=== PATIENT | male | born 1980 | race Caucasian/White ===

== ENCOUNTER 2020-09-09 21:43 | Emergency (ER) | payer BC, SELFPAY ==
[2020-09-09 21:50] VITALS: BP 147/78; PULSE 66; O2SAT 96
[2020-09-09 21:55] VITALS: BP 147/78; PULSE 87; RESP 17; TEMP 36.7; O2SAT 100; BMI 25.4
[2020-09-09 22:00] VITALS: PULSE 79; RESP 21; O2SAT 100
--- NOTE | 2020-09-09 22:01 | ED.GENADULT ---
HPI - General Adult General Chief complaint: Chest Pain Stated complaint: CHEST TIGHTNESS HEART RATE IS FAST LITTLE SOB Time Seen by Provider: 09/09/20 21:44 Source: patient Mode of arrival: Ambulatory Limitations: no limitations History of Present Illness HPI narrative: 40-year-old male who is here for evaluation of 3 days of intermittent palpitations, fast heart rate, shortness of breath associated with it and chest discomfort. He states that he used his Apple watch at home and stated that his heart rate was in the 160s. He was having symptoms at the time of his EKG and arrival here to the ER. Prior to 3 days ago denies any prior history of similar symptoms. Has not tried anything for symptoms prior to arrival Related Data Allergies Allergy/AdvReac Type Severity Reaction Status Date / Time No Known Drug Allergies Allergy Verified 09/09/20 22:10 Review of Systems Constitutional Constitutional: Denies fever(s) and Denies headache(s) ENT Ears, Nose, Mouth, and Throat: Denies headache(s) Cardiovascular Cardiovascular: Reports chest pain, Reports rapid heart rate, Reports irregular heart rhythm and Reports lightheadedness Respiratory Respiratory: Denies cough Gastrointestinal Gastrointestinal: Denies nausea and Denies vomiting Musculoskeletal Musculoskeletal: Denies arthralgias and Denies myalgias Integumentary/Breasts Skin/Breast: Denies lesions and Denies rash Neurologic Neurologic: Denies behavioral changes and Denies headache(s) Psychiatric Psychiatric: Denies behavioral changes Hematologic/Lymphatic Hematologic/Lymphatic: Denies easy bleeding and Denies easy bruising Allergic/Immunologic Allergic/Immunologic: Denies urticaria Patient History Medical History Anxiety Social History Smoking Status: Never smoker Exam Initial Vital Signs Initial Vital Signs: Vital Signs Pulse Rate 66 09/09/20 21:50 Blood Pressure 147/78 H 09/09/20 21:50 Pulse Oximetry 96 09/09/20 21:50 Const General: cooperative and comfortable Limitations: mental status not altered HENNH Head: normal to inspection and normocephalic Resp Effort & Inspection: normal respiratory effort Auscultation: clear to auscultation bilaterally Cardio Rate: regular rate Rhythm: regular rhythm GI Inspection: non-distended Palpation: soft Skin Lesions: no lesions Rashes: no rashes Neuro General: patient alert, patient awake and patient oriented x3 Cognition: normal cognition Speech: speech normal Extrem General: normal to inspection and capillary refill normal Psych Appearance: grossly normal and well kempt Scores PERC Score Age greater than or equal to 50 years: No Heart rate greater than or equal to 100 bpm: No Room Air O2 Sat less than 95%: No Unilateral leg swelling: No Recent trauma or surgery: No Hemoptysis: No Prior PE or DVT: No Hormone Use: No Total PERC Score: 0 Course Orders Ordered: ED Orders 09/09/20 21:48 EKG-12 Lead Stat 09/09/20 22:02 XR chest 1V Stat 09/09/20 22:05 Complete Blood Count AUTO DIFF Stat Comprehensive Metabolic Panel Stat Lipase Stat Troponin & CK Cardiac Panel Stat Vital Signs Vital signs: Vital Signs - 8 hr 09/09/20 21:50 09/09/20 21:55 09/09/20 22:00 Temperature 98.1 F Pulse Rate 66 87 79 Respiratory Rate 17 21 Blood Pressure 147/78 H 147/78 H Pulse Oximetry 96 100 100 09/09/20 22:30 09/09/20 22:44 Temperature Pulse Rate 74 63 Respiratory Rate 20 Blood Pressure 114/62 Pulse Oximetry 98 97 Medical Decision Making Lab Data Lab results reviewed: Yes I reviewed the patient's lab results. Result diagrams: 09/09/20 22:05 09/09/20 22:05 Labs: Lab Results 09/09/20 09/09/20 Range/Units 22:05 22:05 WBC 6.4 (4.5-11.0) X10^3/uL RBC 4.32 L (4.5-5.9) X10^6/uL Hgb 13.8 (13.5-17.5) g/dL Hct 40.3 L (41-53) % MCV 93.3 (80-100) fL MCH 32.0 (26-34) PG MCHC 34.3 (30-36) % RDW 12.8 (11.6-14.8) % Plt Count 197 (150-400) X10^3/uL Neut % (Auto) 39.3 L (50-75) % Lymph % (Auto) 47.6 H (25-40) % [place] % (Auto) 10.2 (3-14) % Eos % (Auto) 2.5 (2-4) % Baso % (Auto) 0.4 (0-2) % Neut # (Auto) 2500 (0060-5017) /uL Lymph # (Auto) 3000 (2601-5620) /uL [place] # (Auto) 600 (0-900) /uL Eos # (Auto) 200 (0-450) /uL Baso # (Auto) 0 (0-100) /uL Sodium 138 (137-145) mmol/L Potassium 3.5 (3.4-5.1) mmol/L Chloride 103 (98-107) mmol/L Carbon Dioxide 27 (22-32) mmol/L BUN 14 (9-20) mg/dL Creatinine 0.90 (0.66-1.25) mg/dL Estimated GFR > 60.0 (>60) mL/min BUN/Creatinine Ratio 15.6 (6-22) Glucose 113 H (70-100) mg/dL Calcium 10.0 (8.4-10.2) mg/dL Total Bilirubin 0.7 (0.2-1.3) mg/dL AST 34 (17-59) IU/L ALT 23 (<50) IU/L Alkaline Phosphatase 62 (38-126) U/L Total Creatine Kinase 188 H (55-170) U/L CK-MB (CK-2) 1.10 (<2.37) ng/mL CK-MB (CK-2) Rel Index 0.6 L (1.5-5.0) % Troponin I < 0.012 (0.01-0.034) ng/mL Total Protein 8.2 (6.3-8.2) g/dL Albumin 4.9 (3.5-5.0) g/dL Globulin 3.3 (1.7-4.1) g/dL Albumin/Globulin Ratio 1.5 (1.0-2.8) Lipase 25 (23-300) U/L Imaging Data Chest x-ray: Radiologist's Impression: No acute disease ECG Data Attestation: I personally reviewed and interpreted this ECG as follows: Prior ECG tracings: not available for review Interpretation: Sinus rhythm Ventricular rate 90 Normal QRS QTC 4 for [address] T wave changes MDM Narrative Medical decision making narrative: Patient states that he was having symptoms at the time of his arrival here to the ER. He was in sinus rhythm and a normal rate both on his EKG and on the monitor while he was here. His labs unremarkable. Chest x-ray is unremarkable. Low suspicion for pulmonary embolism. Informed the patient he needed to talk with his primary doctor about the indications for Holter monitoring given his presentation. He will patient be discharged home with follow-up. He was given return precautions. He expressed understanding and agreement. Discharge Plan Departure Patient Disposition: Home Clinical Impression: Palpitations Instructions: DI for Palpitations Activity Restrictions/Additional Instructions: I do recommend that you contact your primary provider to discuss the indications for a Holter monitor. Return to the emergency department for any new or worsening symptoms like we discussed.
--- NOTE | 2020-09-09 22:02 | DI.RAD.S_ITS ---
PROCEDURE: XR CHEST 1V INDICATIONS: SOB TECHNIQUE: One view of the chest was acquired. COMPARISON: None. FINDINGS: Surgical changes and devices: None. Lungs and pleura: Lungs are mildly abnormal with increased radiodensity over the right hemithorax when compared to that on the left. It is unclear whether this represents an artifact of technique, or a true asymmetric lung parenchymal finding.. No pleural effusions or pneumothorax. Mediastinum: Mediastinal contours appear normal. Heart size is normal. Bones and chest wall: No suspicious bony lesions. Overlying soft tissues appear unremarkable. IMPRESSION: No definite acute disease. Possible artifact of technique resulting in asymmetric increased radiodensity over the right lung when compared to normal appearance on the left. Follow-up repeat chest plain film in the radiology department would be helpful in accurately assessing cause of this asymmetry. Clinically, however, such follow-up may not be warranted. Dictated by: Obed Huertas M.D. on 09/10/2020 at 9:00 Approved by: Obed Huertas M.D. on 09/10/2020 at 9:02
[2020-09-09 22:10] LABS: Add Manual Diff / Slide Review NO; Basophils Absolute Auto 0 /uL (0-100); Basophils Percent Auto 0.4 % (0-2); Eosinophils Absolute Auto 200 /uL (0-450); Eosinophils Percent Auto 2.5 % (2-4); Hematocrit 40.3 % (41-53); Hemoglobin 13.8 g/dL (13.5-17.5); Lymphocytes Absolute Auto 3000 /uL (1100-4500); Lymphocytes Percent Auto 47.6 % (25-40); Mean Corpuscular HGB Conc 34.3 % (30-36); Mean Corpuscular Volume 93.3 fL (80-100); Monocytes Absolute Auto 600 /uL (0-900); Monocytes Percent Auto 10.2 % (3-14); Neutrophils Absolute Auto 2500 /uL (1500-7000); Neutrophils Percent Auto 39.3 % (50-75); Platelet Count 197 X10^3/uL (150-400); Red Blood Cell Count 4.32 X10^6/uL (4.5-5.9); Red Cell Distribution Width 12.8 % (11.6-14.8); White Blood Cell Count 6.4 X10^3/uL (4.5-11.0)
[2020-09-09 22:21] LABS: Alanine Aminotransferase 23 IU/L (<50); Albumin 4.9 g/dL (3.5-5.0); Albumin Globulin Ratio 1.5 (1.0-2.8); Alkaline Phosphatase 62 U/L (38-126); Aspartate Aminotransferase 34 IU/L (17-59); BUN Creatinine Ratio 15.6 (6-22); Bilirubin Total 0.7 mg/dL (0.2-1.3); Blood Urea Nitrogen 14 mg/dL (9-20); Carbon Dioxide 27 mmol/L (22-32); Chloride 103 mmol/L (98-107); Creatine Kinase 188 U/L (55-170); Estimated Glomerular Filt Rate > 60.0 mL/min (>60); Globulin 3.3 g/dL (1.7-4.1); Glucose 113 mg/dL (70-100); HEMOLYSIS < 15 (0-50); Lipase 25 U/L (23-300); Potassium 3.5 mmol/L (3.4-5.1); Sodium 138 mmol/L (137-145); Total Protein 8.2 g/dL (6.3-8.2)
[2020-09-09 22:30] VITALS: PULSE 74; O2SAT 98
[2020-09-09 22:33] LABS: Troponin I < 0.012 ng/mL (0.01-0.034)
[2020-09-09 22:37] LABS: CKMB % Relative Index 0.6 % (1.5-5.0)
[2020-09-09 22:44] VITALS: BP 114/62; PULSE 63; RESP 20; O2SAT 97
== END 2020-09-09 23:03 | disposition home or self-care (01) ==
PROVIDERS: Emergency Provider Emergency Medicine
DX: R00.2 Palpitations (principal); R06.02 Shortness of breath; R07.9 Chest pain, unspecified
CPT/HCPCS: 71045; 80053; 82550; 82553; 83690; 84484; 85025; 93005; 99281; 99284

== ENCOUNTER 2020-09-18 23:45 | Observation (INO) | payer BC, SELFPAY ==
--- NOTE | 2020-09-18 23:54 | DI.RAD.S_ITS ---
PROCEDURE: XR CHEST 1V INDICATIONS: chest pain TECHNIQUE: One view of the chest was acquired. COMPARISON: [facility], CR, XR CHEST 1V, 09/09/2020, 22:04. FINDINGS: Surgical changes and devices: None. Lungs and pleura: Lungs are clear. No pleural effusions or pneumothorax. Mediastinum: Mediastinal contours appear normal. Heart size is normal. Bones and chest wall: No suspicious bony lesions. Overlying soft tissues appear unremarkable. IMPRESSION: No acute cardiopulmonary disease process. Dictated by: Yady Rojas MD, PhD on 09/19/2020 at 9:01 Approved by: Yady Rojas MD, PhD on 09/19/2020 at 9:02
[2020-09-18 23:55] VITALS: BP 137/63; PULSE 52; PULSE 58; RESP 14; RESP 17; TEMP 36.9; O2SAT 100; O2SAT 99; BMI 24.3
[2020-09-19] VITALS (24 sets, daily range): BP systolic 97–140; BP diastolic 53–77; PULSE 47–96; RESP 12–32; TEMP 36.1–37.1; O2SAT 95–100; BMI 24.7
--- NOTE | 2020-09-19 | DI.ECHO.S_ITS ---
[facility] +---------+ : : [address] : [place] : : : : [id number] : : : : Phone: [phone] Echocardiogram Report + + :Name: JAMES FIELD Study Date: 09/19/2020 Height: 65 in : :[facility] Weight: 195 lb : : Gender: Male BSA: 2.0 m2 : :: 1980 Age: 40 yrs BP: 137/63 mmHg: :Reason For Study: Chest Pain : : Performed By: Lorri Jones : :Referring: KAREN LOZADA : + + Interpretation Summary 1) Normal left ventricular size, thickness, wall motion, and systolic function (EF 55-60%). 2) Normal right ventricular size and function. 3) No significant valvular abnormalities. 4) No prior Echo available for comparison. Procedure: A two-dimensional transthoracic echocardiogram with color flow and Doppler was performed. The study quality was technically adequate. There is no prior echocardiogram noted for this patient. The patient was in normal sinus rhythm during the exam. Left Ventricle: The left ventricle is normal in size and wall thickness. The ejection fraction is estimated to be 55-60%. Left ventricular systolic function appears normal without focal wall motion abnormalities. Right Ventricle: The right ventricle is normal in size and function. Atria: The left atrial size is normal. Right atrial size is normal. There is no Doppler evidence for an interatrial shunt. Mitral Valve: The mitral valve leaflets appear mildly thickened, but open well. There is trace mitral regurgitation. Aortic Valve: The aortic valve is trileaflet. The aortic valve opens well. There is no aortic valve stenosis. No aortic regurgitation is present. Tricuspid Valve: The tricuspid valve is normal in structure and function. There is a trace or physiologic amount of tricuspid regurgitation. Pulmonary artery pressures cannot be estimated because of the lack of a measurable TR jet velocity. Pulmonic Valve: The pulmonic valve leaflets are thin and pliable; valve motion is normal. There is a trace or physiologic amount of pulmonic regurgitation. Great Vessels: The aortic root is normal size. The ascending aorta is normal in size. The pulmonary artery is normal size. The IVC is of normal diameter and collapses greater than 50% with a sniff. This suggests a low right atrial pressure of 3 mm Hg. Pericardium/ Pleura There is no pericardial effusion. MMode/2D Measurements & Calculations LVIDd: 5.2 cm LVOT diam: 2.5 cm LVIDs: 3.4 cm Ao root diam: 3.2 cm FS: 34.8 % asc Aorta Diam: 2.6 cm IVSd: 0.82 cm LVPWd: 0.91 cm LV guerin. diameter/BSA (cm/m^2): 2.7 LV sys. diameter/BSA (cm/m^2): 1.7 LA A2 area: 22.4 cm2 RA long axis: 4.7 cm LA A4 area: 16.1 cm2 RA area: 17.5 cm2 LA length (vol): 5.3 cm RA vol: 54.9 ml LA vol: 57.1 ml RA : 28.1 ml/m2 LA vol index: 29.2 ml/m2 IVC diam: 2.0 cm RVD1 (basal): 3.6 cm TAPSE: 2.9 cm Doppler Measurements & Calculations Ao V2 max: 116.1 cm/sec LVOT Max Andrea: 101.8 cm/sec Ao V2 mean: 79.5 cm/sec LV V1 max P.1 mmHg Ao max P.4 mmHg LV V1 VTI: 18.9 cm Ao mean P.8 mmHg RAFA(I,D): 4.1 cm2 Ao V2 VTI: 21.7 cm RAFA(V,D): 4.2 cm2 sev ratio: 0.87 RAFA indexed to BSA (cm^2/m^2): 2.1 MV E max andrea: 64.9 cm/sec PA V2 max: 78.3 cm/sec MV A max andrea: 39.7 cm/sec PA V2 mean: 57.8 cm/sec MV E/A: 1.6 PA mean P.4 mmHg Med Peak E' Andrea: 11.7 cm/sec PA Accel Time: 0.12 sec E/E' med: 5.6 Lat Peak E' Andrea: 19.4 cm/sec E/E' lat: 3.3 E/e' average: 4.5 MV P1/2t: 60.5 msec MV P1/2t max andrea: 65.4 cm/sec SV(LVOT): 90.2 ml MVA(P1/2t): 3.6 cm2 Reading Physician:11:51 AM
[2020-09-19 00:02] LABS: Add Manual Diff / Slide Review NO; Basophils Absolute Auto 0 /uL (0-100); Basophils Percent Auto 0.4 % (0-2); Eosinophils Absolute Auto 200 /uL (0-450); Eosinophils Percent Auto 2.7 % (2-4); Hematocrit 40.7 % (41-53); Hemoglobin 14.3 g/dL (13.5-17.5); Lymphocytes Absolute Auto 2600 /uL (1100-4500); Lymphocytes Percent Auto 42.7 % (25-40); Mean Corpuscular HGB Conc 35.2 % (30-36); Mean Corpuscular Hemoglobin 32.2 PG (26-34); Mean Corpuscular Volume 91.6 fL (80-100); Monocytes Absolute Auto 700 /uL (0-900); Monocytes Percent Auto 10.9 % (3-14); Neutrophils Absolute Auto 2600 /uL (1500-7000); Neutrophils Percent Auto 43.3 % (50-75); Platelet Count 208 X10^3/uL (150-400); Red Blood Cell Count 4.45 X10^6/uL (4.5-5.9); Red Cell Distribution Width 12.6 % (11.6-14.8)
--- NOTE | 2020-09-19 00:02 | ED.CHESTPAIN ---
HPI - Chest Pain General Chief Complaint: Chest Pain Stated Complaint: chest tightness, dizziness, neck pain Time Seen by Provider: 09/18/20 23:45 Source: patient and family Mode of arrival: Ambulatory Limitations: no limitations History of Present Illness HPI narrative: 40M nonsmoker with benign medical history presents with the chief complaint of left anterior chest pressure that started about an hour prior to his arrival. He denies any provocation or palliation. He denies any radiation or other red flag symptoms such as N/V or unexplained diaphoresis. He states that it was very intense at it's onset and is a bit better now, but still has some pressure. He was recently seen here for palpitations a few weeks ago with a reassuring work up. He was referred to a cardiology at the [facility] and had an appointment today. Apparently his EKG was concerning for a potential ID in the past and he was scheduled for an outpatient stress test and echo in a week. He had a rather mild case of COVID in June and symptoms only included a fullness in his head. MD complaint: chest pain Onset (ago): hour(s) Duration: improved Onset: during rest Pain location: left chest Severity: moderate Quality: tightness and aching Pain radiation: none Relieving factors: nothing Exacerbating factors: nothing Treatments prior to arrival chest pain: none Related Data Home Medications Medication Instructions Recorded Confirmed aspirin [Alee Aspirin] 325 mg PO Q4H PRN 09/19/20 09/19/20 Allergies Allergy/AdvReac Type Severity Reaction Status Date / Time No Known Drug Allergies Allergy Verified 09/09/20 22:10 Review of Systems Constitutional Constitutional: Denies chills, Denies fatigue, Denies fever(s), Denies frequent falls, Denies lethargy and Denies weakness Eyes Eyes: Denies change in vision, Denies eye discharge, Denies irritation and Denies loss of vision ENT Ears, Nose, Mouth, and Throat: Denies change in voice, Denies dizziness, Denies neck pain, Denies sore throat and Denies throat swelling Cardiovascular Cardiovascular: Reports chest pain, Denies irregular heart rhythm, Denies lightheadedness, Denies palpitations, Denies dyspnea, Denies dyspnea on exertion and Denies orthopnea Respiratory Respiratory: Denies cough, Denies dyspnea, Denies dyspnea on exertion and Denies wheezing Gastrointestinal Gastrointestinal: Denies abdominal pain, Denies change in bowel habits, Denies diarrhea, Denies nausea and Denies vomiting Musculoskeletal Musculoskeletal: Denies neck pain and Denies numbness Integumentary/Breasts Skin/Breast: Denies pruritus, Denies erythema, Denies rash and Denies wounds Neurologic Neurologic: Denies behavioral changes, Denies confusion, Denies dizziness, Denies frequent falls, Denies loss of vision, Denies numbness and Denies weakness Psychiatric Psychiatric: Denies anxiety, Denies behavioral changes, Denies confusion, Denies depression, Denies homicidal ideation and Denies suicidal ideation Endocrine Endocrine: Denies fatigue, Denies flushing and Denies palpitations Hematologic/Lymphatic Hematologic/Lymphatic: Denies easy bruising Allergic/Immunologic Allergic/Immunologic: Denies urticaria, Denies throat swelling and Denies wheezing Patient History Medical History Anxiety Patient denies significant medical history Surgical History No history of previous surgery Family History Mother Cardiomyopathy Father Myocardial infarction Social History household members: significant other Smoking Status: Former smoker alcohol intake: former Smoking Status: Never smoker alcohol intake frequency: 0-2 drinks per day Substance Use Type: marijuana Exam Narrative Exam Narrative: GENERAL: [40] year old patient appears stated age. Well-nourished, well-developed patient, in mild distress. Anxious HEAD: Atraumatic. Normocephalic. EYES: Pupils equal round and reactive. Extraocular motions intact. No scleral icterus. No injection or drainage. ENT: Nose without bleeding, purulent drainage. Throat without erythema, tonsillar hypertrophy or exudate. Airway patent. NECK: Trachea midline. Non tender CARDIOVASCULAR: Regular rate and rhythm without murmurs, gallops, or rubs. RESPIRATORY: Clear to auscultation. Breath sounds equal bilaterally. No wheezes, rales, or rhonchi. GASTROINTESTINAL: Abdomen soft, non-tender, nondistended. EXTREMITIES: No edema or joint tenderness. BACK: Nontender without deformity or crepitance. No flank tenderness. NEURO: AOx3. SKIN: No rash or erythema of visible areas Initial Vital Signs Initial Vital Signs: Vital Signs Temperature 98.5 F 09/18/20 23:55 Pulse Rate 52 L 09/18/20 23:55 Respiratory Rate 14 09/18/20 23:55 Blood Pressure 137/63 09/18/20 23:55 Pulse Oximetry 99 09/18/20 23:55 Course Orders Ordered: ED Orders 09/18/20 23:54 XR chest 1V Stat EKG-12 Lead Stat 09/18/20 23:55 Complete Blood Count AUTO DIFF Stat Comprehensive Metabolic Panel Stat D Dimer Stat Lipase Stat NT-proBNP (BNP-Adult 18+) Stat Procalcitonin Stat Prothrombin Time INR Stat Troponin & CK Cardiac Panel Stat 09/19/20 00:41 CT angio chest PE protocol Stat EKG-12 Lead Stat 09/19/20 00:50 COVID19 Stat 09/19/20 01:55 Troponin I Stat Acetaminophen (Acetaminophen 325 Mg Tablet) 650 mg PO Q6HR PRN PRN Reason: Fever/Mild Pain (1-3) Aspirin (Aspirin Ec 81 Mg Tablet) 81 mg PO DAILY JES Atorvastatin Calcium (Atorvastatin 20 Mg Tablet) 80 mg PO BEDTIME JES Enoxaparin Sodium (Enoxaparin 40 Mg/0.4 Ml Syringe) 40 mg SUBCUT DAILY [facility] Sodium Chloride (Normal Saline 0.9%) 1,000 mls @ 150 mls/hr IV CONT JES Last Infusion: 09/19/20 03:27 Dose: 0 mls/hr Documented by: Admin: 09/19/20 00:10 Dose: 150 mls/hr Documented by: RMARTIN Morphine Sulfate (Morphine 2 Mg/Ml Inj) 2 mg IV Q5MIN PRN PRN Reason: Chest Pain Naloxone HCl (Naloxone 0.4 Mg/Ml Vial) 0.2 mg IV Q2MIN PRN PRN Reason: Opiate Reversal Nitroglycerin (Nitroglycerin 0.4 Mg Sl Tab) 0.4 mg SL [id number] PRN PRN Reason: Cardiac Arrhythmia Last Admin: 09/19/20 00:11 Dose: 0.4 mg Documented by: RMARTIN Nitroglycerin (Nitroglycerin 0.4 Mg Sl Tab) 0.4 mg SL [id number] PRN PRN Reason: Chest Pain Ondansetron HCl (Ondansetron 4 Mg/2 Ml Inj) 4 mg IV Q8HR PRN PRN Reason: Nausea And Vomiting Discontinued Medications Aspirin (Aspirin 81 Mg Chew Tab) 324 mg PO NOW ONE Stop: 09/18/20 23:54 Last Admin: 09/19/20 00:10 Dose: 324 mg Documented by: LULU Consultations Consultation #1: call to on-call Cardio at [facility]. He has reviewed the case and was able to review the office visit for us. EKG was rather blad but suggested poor R wave progression. Patient had been scheduled for Echo and stress test in the future. We reviewed that patient history and agree that it is appropriate to keep patient here to get echo and stress test done Vital Signs Vital signs: Vital Signs - 8 hr 09/18/20 23:55 09/19/20 00:00 09/19/20 00:01 Temperature 98.5 F Pulse Rate 58 L 57 L 59 L Respiratory Rate 17 19 17 Blood Pressure 137/63 137/63 Pulse Oximetry 100 95 100 09/19/20 00:15 09/19/20 00:21 09/19/20 00:25 Temperature Pulse Rate 65 62 62 Respiratory Rate 17 14 13 Blood Pressure 131/71 99/54 L 97/53 L Pulse Oximetry 98 98 98 09/19/20 00:30 09/19/20 00:35 09/19/20 00:40 Temperature Pulse Rate 61 52 L 51 L Respiratory Rate 15 14 18 Blood Pressure 110/59 L 117/64 116/73 Pulse Oximetry 97 98 97 09/19/20 00:45 09/19/20 00:50 09/19/20 00:56 Temperature Pulse Rate 49 L 51 L 58 L Respiratory Rate 15 12 15 Blood Pressure 119/74 116/71 117/74 Pulse Oximetry 97 97 97 09/19/20 01:07 09/19/20 01:09 09/19/20 01:30 Temperature Pulse Rate 54 L 50 L 68 Respiratory Rate 12 32 H Blood Pressure 131/70 Pulse Oximetry 98 99 98 09/19/20 01:46 09/19/20 01:50 09/19/20 01:58 Temperature Pulse Rate 63 51 L 50 L Respiratory Rate Blood Pressure 124/67 122/70 114/66 Pulse Oximetry 99 09/19/20 02:00 09/19/20 02:30 09/19/20 03:00 Temperature Pulse Rate 51 L 51 L 56 L Respiratory Rate Blood Pressure Pulse Oximetry 97 97 97 MDM - Chest Pain Lab Data Result diagrams: 09/18/20 23:55 09/18/20 23:55 Labs: Lab Results 09/18/20 09/18/20 09/18/20 Range/Units 23:55 23:55 23:55 WBC (4.5-11.0) X10^3/uL RBC (4.5-5.9) X10^6/uL Hgb (13.5-17.5) g/dL Hct (41-53) % MCV (80-100) fL MCH (26-34) PG MCHC (30-36) % RDW (11.6-14.8) % Plt Count (150-400) X10^3/uL Neut % (Auto) (50-75) % Lymph % (Auto) (25-40) % [place] % (Auto) (3-14) % Eos % (Auto) (2-4) % Baso % (Auto) (0-2) % Neut # (Auto) (3632-6140) /uL Lymph # (Auto) (3575-2373) /uL [place] # (Auto) (0-900) /uL Eos # (Auto) (0-450) /uL Baso # (Auto) (0-100) /uL PT 11.9 (10.1-12.7) SECONDS INR 1.0 (0.9-1.3) D-Dimer < 200 (<230) ng/mL Sodium (137-145) mmol/L Potassium (3.4-5.1) mmol/L Chloride (98-107) mmol/L Carbon Dioxide (22-32) mmol/L BUN (9-20) mg/dL Creatinine (0.66-1.25) mg/dL Estimated GFR (>60) mL/min BUN/Creatinine Ratio (6-22) Glucose (70-100) mg/dL Calcium (8.4-10.2) mg/dL Total Bilirubin (0.2-1.3) mg/dL AST (17-59) IU/L ALT (<50) IU/L Alkaline Phosphatase (38-126) U/L Total Creatine Kinase (55-170) U/L CK-MB (CK-2) (<2.37) ng/mL CK-MB (CK-2) Rel Index (1.5-5.0) % Troponin I (0.01-0.034) ng/mL NT-Pro-B Natriuret Pep 60 (<125) pg/mL Total Protein (6.3-8.2) g/dL Albumin (3.5-5.0) g/dL Globulin (1.7-4.1) g/dL Albumin/Globulin Ratio (1.0-2.8) Lipase (23-300) U/L Procalcitonin < 0.05 (<0.5) ng/mL COVID-19 PCR (Negative) 09/18/20 09/18/20 09/19/20 Range/Units 23:55 23:55 00:50 WBC 6.0 (4.5-11.0) X10^3/uL RBC 4.45 L (4.5-5.9) X10^6/uL Hgb 14.3 (13.5-17.5) g/dL Hct 40.7 L (41-53) % MCV 91.6 (80-100) fL MCH 32.2 (26-34) PG MCHC 35.2 (30-36) % RDW 12.6 (11.6-14.8) % Plt Count 208 (150-400) X10^3/uL Neut % (Auto) 43.3 L (50-75) % Lymph % (Auto) 42.7 H (25-40) % [place] % (Auto) 10.9 (3-14) % Eos % (Auto) 2.7 (2-4) % Baso % (Auto) 0.4 (0-2) % Neut # (Auto) 2600 (0456-9971) /uL Lymph # (Auto) 2600 (4938-4489) /uL [place] # (Auto) 700 (0-900) /uL Eos # (Auto) 200 (0-450) /uL Baso # (Auto) 0 (0-100) /uL PT (10.1-12.7) SECONDS INR (0.9-1.3) D-Dimer (<230) ng/mL Sodium 139 (137-145) mmol/L Potassium 3.6 (3.4-5.1) mmol/L Chloride 102 (98-107) mmol/L Carbon Dioxide 28 (22-32) mmol/L BUN 15 (9-20) mg/dL Creatinine 0.85 (0.66-1.25) mg/dL Estimated GFR > 60.0 (>60) mL/min BUN/Creatinine Ratio 17.6 (6-22) Glucose 104 H (70-100) mg/dL Calcium 9.8 (8.4-10.2) mg/dL Total Bilirubin 0.4 (0.2-1.3) mg/dL AST 31 (17-59) IU/L ALT 16 (<50) IU/L Alkaline Phosphatase 82 (38-126) U/L Total Creatine Kinase 126 (55-170) U/L CK-MB (CK-2) 0.36 (<2.37) ng/mL CK-MB (CK-2) Rel Index 0.3 L (1.5-5.0) % Troponin I < 0.012 (0.01-0.034) ng/mL NT-Pro-B Natriuret Pep (<125) pg/mL Total Protein 8.2 (6.3-8.2) g/dL Albumin 4.9 (3.5-5.0) g/dL Globulin 3.3 (1.7-4.1) g/dL Albumin/Globulin Ratio 1.5 (1.0-2.8) Lipase 64 D (23-300) U/L Procalcitonin (<0.5) ng/mL COVID-19 PCR Negative (Negative) 09/19/20 Range/Units 01:55 WBC (4.5-11.0) X10^3/uL RBC (4.5-5.9) X10^6/uL Hgb (13.5-17.5) g/dL Hct (41-53) % MCV (80-100) fL MCH (26-34) PG MCHC (30-36) % RDW (11.6-14.8) % Plt Count (150-400) X10^3/uL Neut % (Auto) (50-75) % Lymph % (Auto) (25-40) % [place] % (Auto) (3-14) % Eos % (Auto) (2-4) % Baso % (Auto) (0-2) % Neut # (Auto) (2425-5790) /uL Lymph # (Auto) (5640-4347) /uL [place] # (Auto) (0-900) /uL Eos # (Auto) (0-450) /uL Baso # (Auto) (0-100) /uL PT (10.1-12.7) SECONDS INR (0.9-1.3) D-Dimer (<230) ng/mL Sodium (137-145) mmol/L Potassium (3.4-5.1) mmol/L Chloride (98-107) mmol/L Carbon Dioxide (22-32) mmol/L BUN (9-20) mg/dL Creatinine (0.66-1.25) mg/dL Estimated GFR (>60) mL/min BUN/Creatinine Ratio (6-22) Glucose (70-100) mg/dL Calcium (8.4-10.2) mg/dL Total Bilirubin (0.2-1.3) mg/dL AST (17-59) IU/L ALT (<50) IU/L Alkaline Phosphatase (38-126) U/L Total Creatine Kinase (55-170) U/L CK-MB (CK-2) (<2.37) ng/mL CK-MB (CK-2) Rel Index (1.5-5.0) % Troponin I < 0.012 (0.01-0.034) ng/mL NT-Pro-B Natriuret Pep (<125) pg/mL Total Protein (6.3-8.2) g/dL Albumin (3.5-5.0) g/dL Globulin (1.7-4.1) g/dL Albumin/Globulin Ratio (1.0-2.8) Lipase (23-300) U/L Procalcitonin (<0.5) ng/mL COVID-19 PCR (Negative) Discharge Plan Departure Patient Disposition: Admitted as Observation Clinical Impression: Chest pain Qualifiers: Chest pain type: unspecified Qualified Code(s): R07.9 - Chest pain, unspecified Admit Date/Time: 09/19/20 03:13 Admit Provider: Ellen Mata
[2020-09-19 00:09] LABS: Prothrombin Time 11.9 SECONDS (10.1-12.7)
[2020-09-19] MEDS: SODIUM CHLORIDE 0.9% 1,000 ML 150 ML IV (00:10)
[2020-09-19] MEDS: ASPIRIN 81 MG CHEW TAB 324 MG PO (00:10)
[2020-09-19] MEDS: NITROGLYCERIN 0.4 MG SL TAB SL (00:11)
[2020-09-19 00:16] LABS: Alanine Aminotransferase 16 IU/L (<50); Albumin 4.9 g/dL (3.5-5.0); Albumin Globulin Ratio 1.5 (1.0-2.8); Alkaline Phosphatase 82 U/L (38-126); Aspartate Aminotransferase 31 IU/L (17-59); BUN Creatinine Ratio 17.6 (6-22); Bilirubin Total 0.4 mg/dL (0.2-1.3); Blood Urea Nitrogen 15 mg/dL (9-20); Calcium 9.8 mg/dL (8.4-10.2); Carbon Dioxide 28 mmol/L (22-32); Chloride 102 mmol/L (98-107); Creatine Kinase 126 U/L (55-170); D Dimer < 200 ng/mL (<230); Estimated Glomerular Filt Rate > 60.0 mL/min (>60); Globulin 3.3 g/dL (1.7-4.1); Glucose 104 mg/dL (70-100); HEMOLYSIS 30 (0-50); Lipase 64 U/L (23-300); Potassium 3.6 mmol/L (3.4-5.1); Sodium 139 mmol/L (137-145); Total Protein 8.2 g/dL (6.3-8.2)
[2020-09-19 00:25] LABS: NT-proBNP (BNP-Adult 18+) 60 pg/mL (<125)
[2020-09-19 00:28] LABS: Troponin I < 0.012 ng/mL (0.01-0.034)
[2020-09-19 00:31] LABS: CKMB % Relative Index 0.3 % (1.5-5.0); Creatine Kinase MB 0.36 ng/mL (<2.37)
[2020-09-19 00:36] LABS: Procalcitonin < 0.05 ng/mL (<0.5)
--- NOTE | 2020-09-19 00:41 | DI.CT.S_ITS ---
PROCEDURE: CT ANGIO CHEST PE PROTOCOL INDICATIONS: chest pain, shortness of breath TECHNIQUE: After the administration of intravenous contrast, 2 mm thick sections acquired from the pulmonary apices to the posterior costophrenic angles. 3-dimensional maximum intensity projection (MIP) coronal and sagittal reformats were then acquired through the thorax. For radiation dose reduction, the following was used: automated exposure control, adjustment of mA and/or kV according to patient size. COMPARISON: None. FINDINGS: Image quality: Excellent. Pulmonary arteries: Pulmonary arteries are normal in size, and demonstrate no intraluminal filling defects to suggest central pulmonary embolism. Lungs and pleura: Lungs are clear. No pleural effusions or pneumothorax. Central and peripheral airways are patent. Mediastinum: Heart size is normal, without pericardial effusion. No mediastinal or hilar adenopathy. Thoracic aorta is normal in caliber and enhancement. Esophagus is normal in caliber, without hiatal hernia. Bones and chest wall: No suspicious bony lesions. Ribs and thoracic spine appear intact throughout. Thyroid gland is unremarkable . No axillary or supraclavicular adenopathy. Abdomen: Visualized upper abdominal solid organs appear normal in the early arterial phase of enhancement. IMPRESSION: 1. No pulmonary embolism. 2. Lungs are clear. The above findings are concordant with preliminary report. Dictated by: Tamia Grajeda M.D. on 09/19/2020 at 8:46 Approved by: Tamia Grajeda M.D. on 09/19/2020 at 9:02
[2020-09-19 01:13] LABS: COVID19 -Nasal RAPID Negative (Negative)
[2020-09-19 02:45] LABS: Troponin I < 0.012 ng/mL (0.01-0.034)
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
--- NOTE | 2020-09-19 04:45 | PC.ADMIT ---
Addendum entered by Maribeth Johnson R.N. 09/19/20 04:56: patient denies any thoughts of suicide at this time and states he never had a plan when he was feeling depressed Original Note: [id number] patient admitted to room 205 from ER; walked up to floor. States he came to ER due to left sided chest pressure, cold sensation in left chest with accompanying dizziness. Was recently to see extrusion former in [place] where an EKG has presumably shown an old OH. Is being admitted to have echo and stress test. Currently denies chest pain/pressure but states he has weird feeling over left chest. Is alert and oriented. Breath sounds CTA with RA sat of 99%. HRR but bradycardic with rate in 50's; telemetry reading was SB. BP elevated at 140/75. Denies nausea. BT present and abdomen is soft; had BM while in ER. Denies dysuria, frequency or urgency with urination. Is independent with mobility with no reported falls. Skin condition is good; without rashes, redness, bruising but has multiple tatoos. Denies loss of sensation but does report intermittent tingling in left arm related to hx of neck injury. Reports he is a former cocaine user, quit smoking 10 years ago, and drank 3-6 beers daily but quit on 09/09/20. Reports having had COVID-19 in June. Also reports 5-6 pound weight loss in past month related to alcohol cessation. Additionally states earlier this year had contemplated suicide but was able to overcome depression by getting animals and making healthier choices in his life but would welcome a referral to a mental health counselor. Oriented to bed controls and call light. Fall risk score is low. [id number] Admission Note: The patient,Russell Severino,40 y/o, was given written information regarding hospital policies, unit procedures and contact persons. Patient's smoking status: Former smoker. Vital Signs - 8 hr 09/18/20 23:55 09/19/20 00:00 09/19/20 00:01 Temperature 98.5 F Pulse Rate 58 L 57 L 59 L Respiratory Rate 17 19 17 Blood Pressure 137/63 137/63 Pulse Oximetry 100 95 100 09/19/20 00:15 09/19/20 00:21 09/19/20 00:25 Temperature Pulse Rate 65 62 62 Respiratory Rate 17 14 13 Blood Pressure 131/71 99/54 L 97/53 L Pulse Oximetry 98 98 98 09/19/20 00:30 09/19/20 00:35 09/19/20 00:40 Temperature Pulse Rate 61 52 L 51 L Respiratory Rate 15 14 18 Blood Pressure 110/59 L 117/64 116/73 Pulse Oximetry 97 98 97 09/19/20 00:45 09/19/20 00:50 09/19/20 00:56 Temperature Pulse Rate 49 L 51 L 58 L Respiratory Rate 15 12 15 Blood Pressure 119/74 116/71 117/74 Pulse Oximetry 97 97 97 09/19/20 01:07 09/19/20 01:09 09/19/20 01:30 Temperature Pulse Rate 54 L 50 L 68 Respiratory Rate 12 32 H Blood Pressure 131/70 Pulse Oximetry 98 99 98 09/19/20 01:46 09/19/20 01:50 09/19/20 01:58 Temperature Pulse Rate 63 51 L 50 L Respiratory Rate Blood Pressure 124/67 122/70 114/66 Pulse Oximetry 99 09/19/20 02:00 09/19/20 02:30 09/19/20 03:00 Temperature Pulse Rate 51 L 51 L 56 L Respiratory Rate Blood Pressure Pulse Oximetry 97 97 97 09/19/20 04:04 Temperature 97.0 F L Pulse Rate 68 Respiratory Rate 20 Blood Pressure 140/75 Pulse Oximetry 99
[2020-09-19 06:04] LABS: Cholesterol 143 mg/dL (140-199); HDL Cholesterol 56 mg/dL (40-60); LDL Cholesterol Calculated 79 mg/dL (<100); Triglycerides 40 mg/dL (35-150)
[2020-09-19 06:16] LABS: Hemoglobin A1C% w Est Avg Glu 5.3 % (4.0-6.0)
[2020-09-19 08:47] LABS: Magnesium 2.2 mg/dL (1.6-2.3)
[2020-09-19 09:03] LABS: Troponin I < 0.012 ng/mL (0.01-0.034)
[2020-09-19] MEDS: ENOXAPARIN 40 MG/0.4 ML SYRINGE SUBCUT (12:34)
[2020-09-19] MEDS: ASPIRIN EC 81 MG TABLET PO (12:35)
--- NOTE | 2020-09-19 13:16 | PC.NURSE ---
Addendum entered by Igor Xiong R.N. 09/19/20 14:18: patient back from 2cd part of stress test, states went well, no cp. vss stable. no complaints. Original Note: DAYSHIFT; PATIENT HAS HAD RESTING PORTION OF STRESS TEST, THEN ECHO AND IS NOW AT 2CD PART OF STRESS TEST. DENIES CP THROUGHOUT SHIFT.
--- NOTE | 2020-09-19 14:25 | CM.IDA ---
Patient admitted observation for chest pain r/o. 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 PMH includes anxiety, UNIX SYSTEM ADMINISTRATOR consult requested, goals for UNIX SYSTEM ADMINISTRATOR consult unclear at this time. If patient stays the evening will need to discuss w/hospitalist tomorrow. This UNIX SYSTEM ADMINISTRATOR unable to see patient today in between procedures off the floor. Will follow closely in case any DC or psych/social needs or concerns arise. YASHIRA
--- NOTE | 2020-09-19 16:57 | PC.NURSE ---
Addendum entered by Faye De La Rosa R.N. 09/19/20 17:44: Pt dresses self and is up ad sana, denies any cardiac symptoms. Script for pantoprazole given to pt as per Dr. Ni's instruction. Pt was provided with written and verbal discharge instructions. IV dc'd intact. Pt prefers to ambulate to vehicle and was escorted by CONVEYOR BELT REPAIRER. Pt left hospital with all personal effects accounted for in stable condition. Original Note: Pt masked up walking in hallway around [place] nurse's station. States feeling well and eager to be discharged to home. Per Dr. Ni, awaiting results of final portion of stress test. Pt verbalizes understanding. Dinner provided and at this time, Dr. Ni is in pt's room preparing pt for discharge.
--- NOTE | 2020-09-19 17:14 | P.DS_ITS ---
History of Present Illness History of Present Illness Date Patient Seen: 09/19/20 Chief complaint: chest tightness, dizziness, neck pain Narrative: Written by Ellen GRIER: Russell Severino is a 40 y.o. male with a limited medical history until two weeks ago when he developed heart palpitations and chest pain and returns with complains of chest pain. He is from [place], and has been working in the state for a period of time and had planned on returning home today. Today while in bed, he had left sided chest pain with a sensation of feeling cold at the site, some posterior neck pain and mild abdominal pain. He has had a previous neck injury that causes him numbing and tingling of his left arm and hand, so he does not attributes this to his ongoing chest pain. He denies shortness of breath, is not having palpitations at the moment, denies dysuria, diarrhea or constipation. He does endorse having a headache from the nitroglycerin he was administered in the ED. Patient states that he had COVID-19 in June of this year. On September 09, he presented to the ED for palpitations and was referred to a election assistant at the [facility]. His EKG that day indicated an incomplete right bundle branch block. He went to his appointment today (the ) and they scheduled him for an echocardiogram and a exercise stress test for next week. When he returned to his hotel room, he developed more severe chest pain and presented to the ED. Today he received ASA 325 mg and one dose of nitroglycerine in the ED. CTA was negative for a PE. Patient is afebrile, blood pressure is 140/75, heart rate 68, respiratory rate of 20, his pain level is 2, his oxygen saturation is 99% on room air, he weighs 89.8 kg with a BMI of 24.7. His CBC panel is unremarkable, coag studies are normal, glucose is mildly elevated at 104, and 2 troponins were negative. Procalcitonin was negative and COVID-19 PCR was negative. Discharge Providers Provider Date of admission: 09/19/20 03:13 Discharge Date: 09/19/20 Consults: 09/19/20 04:54 Consult to SENIOR CYBER SECURITY ANALYST - [employer] Routine Comment: thoughts of suicide earlier this year Discharge provider: Sydni Ni DO Summary Hospital Course Discharge Diagnosis: 1. Acute chest pressure and tightness, present on admission. Resolved. Hospital Course: Russell Severino is a 40-year-old male with no significant past medical history who developed intermittent chest pressure and tightness over the last 2 weeks and presented to the ED with severe chest pressure and tightness with associated shortness of breath. 1. Acute chest pressure and tightness, present on admission. Resolved. -Patient presented with chest pressure and tightness radiating to left axilla with associated shortness of breath. No diaphoresis or nausea. Patient has had intermittent chest pressure and tightness for 2 weeks. -Cardiac risk factors include: High stress and intermittent marijuana use. -EKG demonstrated sinus rhythm without acute ischemic changes such as ST elevation or depression. Previous incomplete right bundle branch block resolved. Continue to monitor closely on telemetry and patient remained in sinus rhythm throughout hospitalization. -Serial troponin x3 negative < 0.012. -Received sublingual nitroglycerin in ED with resolution of chest pressure and tightness. Ordered nitroglycerin 0.4 mg SL every 5 minutes for chest pain and morphine 2 mg IV every 5 minutes for chest pain not relieved with nitroglycerin. -COVID-19 negative. Patient previously positive for COVID-19 in June 2020. No evidence of viral myocarditis or pericarditis on echocardiogram or EKGs. -CTA chest unremarkable and negative for PE, aneurysms or thoracic pathology. -Risk stratified with hemoglobin A1c which was normal at 5.3% and fasting lipid panel which demonstrated excellent lipid control with: Total cholesterol 143, triglycerides 40, LDL 79, and HDL 56. -Echocardiogram unremarkable and demonstrated normal left ventricular size, thickness, wall motion, and systolic with EF 55-60%, normal right ventricular size and function and no significant valvular abnormalities. -Nuclear medicine stress test did not demonstrate perfusion defect and was a low risk study per Cardiology. Patient has excellent exercise capacity. Cardiology recommended trial of PPI for 2-4 weeks for possible stress related acid reflux. If chest pressure and tightness does not resolve could consider esophageal spasm and treat empirically with calcium channel martha. -Recommended stress relieving activities including exercise, meditation, aroma therapy, massage therapy, acupuncture etc. Exam Vital Signs (past 8 hours): - 09/19/20 09:45 09/19/20 14:20 Temperature 97.8 F 98.7 F Pulse Rate 47 L 96 H Respiratory Rate 16 17 Blood Pressure 137/69 125/77 Pulse Oximetry 99 99 Oxygen Delivery Method Room Air Oxygen Flow Rate 0 Narrative Exam Narrative: General: Middle-aged male sitting in bed and in no acute distress, well- developed, well-nourished, appropriately interactive. HEENT: Normocephalic, atraumatic. External ears without defect. Pupils equal, round, and reactive to light. Anicteric sclerae, moist conjunctivae, and no lid lag. Oropharynx free of erythema and cobble stoning with moist mucosa. Neck: Supple with full range of motion. No jugular venous distension. No bruits. No lymphadenopathy or thyromegaly. Cardiovascular: Regular rate and rhythm without murmurs, rubs, or gallops appreciated. Pulmonary: Clear to auscultation bilaterally without crackles, wheezes, or rhonchi. Normal respiratory effort with no use of accessory muscles. Abdomen: Soft, bowel sounds present, nontender, nondistended. No hepatosplenomegaly or masses appreciated. Extremities: No clubbing, cyanosis, or edema. Skin: Normal temperature, turgor, and texture; no rash, ulcers, or subcutaneous nodules appreciated. Neurological: Cranial nerves grossly intact. Psychiatric: Normal mood and affect. Alert and oriented to person, place, and time. Objective Labs Result Diagrams: 09/18/20 23:55 09/18/20 23:55 Labs: Laboratory Results - last 24 hr 09/18/20 09/18/20 09/18/20 23:55 23:55 23:55 WBC RBC Hgb Hct MCV MCH MCHC RDW Plt Count Neut % (Auto) Lymph % (Auto) [place] % (Auto) Eos % (Auto) Baso % (Auto) Neut # (Auto) Lymph # (Auto) [place] # (Auto) Eos # (Auto) Baso # (Auto) PT 11.9 INR 1.0 D-Dimer < 200 Sodium Potassium Chloride Carbon Dioxide BUN Creatinine Estimated GFR BUN/Creatinine Ratio Glucose Hemoglobin A1c Calcium Magnesium Total Bilirubin AST ALT Alkaline Phosphatase Total Creatine Kinase CK-MB (CK-2) CK-MB (CK-2) Rel Index Troponin I NT-Pro-B Natriuret Pep 60 Total Protein Albumin Globulin Albumin/Globulin Ratio Triglycerides Cholesterol LDL Cholesterol, Calc HDL Cholesterol Lipase Procalcitonin < 0.05 TSH COVID-19 PCR 09/18/20 09/18/20 09/18/20 23:55 23:55 23:55 WBC 6.0 RBC 4.45 L Hgb 14.3 Hct 40.7 L MCV 91.6 MCH 32.2 MCHC 35.2 RDW 12.6 Plt Count 208 Neut % (Auto) 43.3 L Lymph % (Auto) 42.7 H [place] % (Auto) 10.9 Eos % (Auto) 2.7 Baso % (Auto) 0.4 Neut # (Auto) 2600 Lymph # (Auto) 2600 [place] # (Auto) 700 Eos # (Auto) 200 Baso # (Auto) 0 PT INR D-Dimer Sodium 139 Potassium 3.6 Chloride 102 Carbon Dioxide 28 BUN 15 Creatinine 0.85 Estimated GFR > 60.0 BUN/Creatinine Ratio 17.6 Glucose 104 H Hemoglobin A1c 5.3 Calcium 9.8 Magnesium Total Bilirubin 0.4 AST 31 ALT 16 Alkaline Phosphatase 82 Total Creatine Kinase 126 CK-MB (CK-2) 0.36 CK-MB (CK-2) Rel Index 0.3 L Troponin I < 0.012 NT-Pro-B Natriuret Pep Total Protein 8.2 Albumin 4.9 Globulin 3.3 Albumin/Globulin Ratio 1.5 Triglycerides Cholesterol LDL Cholesterol, Calc HDL Cholesterol Lipase 64 D Procalcitonin TSH COVID-19 PCR 09/19/20 09/19/20 09/19/20 00:50 01:55 05:25 WBC RBC Hgb Hct MCV MCH MCHC RDW Plt Count Neut % (Auto) Lymph % (Auto) [place] % (Auto) Eos % (Auto) Baso % (Auto) Neut # (Auto) Lymph # (Auto) [place] # (Auto) Eos # (Auto) Baso # (Auto) PT INR D-Dimer Sodium Potassium Chloride Carbon Dioxide BUN Creatinine Estimated GFR BUN/Creatinine Ratio Glucose Hemoglobin A1c Calcium Magnesium Total Bilirubin AST ALT Alkaline Phosphatase Total Creatine Kinase CK-MB (CK-2) CK-MB (CK-2) Rel Index Troponin I < 0.012 NT-Pro-B Natriuret Pep Total Protein Albumin Globulin Albumin/Globulin Ratio Triglycerides 40 Cholesterol 143 LDL Cholesterol, Calc 79 HDL Cholesterol 56 Lipase Procalcitonin TSH COVID-19 PCR Negative 09/19/20 09/19/20 09/19/20 05:25 08:10 08:10 WBC RBC Hgb Hct MCV MCH MCHC RDW Plt Count Neut % (Auto) Lymph % (Auto) [place] % (Auto) Eos % (Auto) Baso % (Auto) Neut # (Auto) Lymph # (Auto) [place] # (Auto) Eos # (Auto) Baso # (Auto) PT INR D-Dimer Sodium Potassium Chloride Carbon Dioxide BUN Creatinine Estimated GFR BUN/Creatinine Ratio Glucose Hemoglobin A1c Calcium Magnesium 2.2 Total Bilirubin AST ALT Alkaline Phosphatase Total Creatine Kinase CK-MB (CK-2) CK-MB (CK-2) Rel Index Troponin I < 0.012 NT-Pro-B Natriuret Pep Total Protein Albumin Globulin Albumin/Globulin Ratio Triglycerides Cholesterol LDL Cholesterol, Calc HDL Cholesterol Lipase Procalcitonin TSH 1.10 COVID-19 PCR [facility] Medical History Anxiety Patient denies significant medical history Surgical History No history of previous surgery Family History Mother Cardiomyopathy Father Myocardial infarction Social History household members: significant other Smoking Status: Former smoker alcohol intake: former Discharge Plan Discharge Plan Patient Disposition: Home Provider Discharge Comment: You are being discharged home. You did not have a heart attack or any signs of impending heart attack. Your stress test was normal. Your EKG was normal. Your echocardiogram was normal you have no e vidence of heart failure, valve disease or heart disease. Your cardiac enzymes were negative. Your CT scan did not show any evidence of aneurysms, blood clots or disease process in the chest or upper abdomen. You were risk stratified and have normal cholesterol levels and you are not diabetic. Your chest pressure and tightness may be related to acid reflux from stress and recommend a 2-4 week t rial of a medication called pantoprazole 40 mg daily. If this medication does not improve your chest pressure and tightness it may be related to esophageal spasm and you may discuss treatment with your primary care physician back home. Please try to limit your stress and recommend stress relieving activities such as exercise, meditation, massage therapy, acupuncture etc. You have clearance to fly home to [place]. Discharge orders & Medications Prescriptions: New pantoprazole 40 mg tablet,delayed release (DR/EC) 40 mg PO DAILY Qty: 28 RF: 0 Discontinued aspirin [Alee Aspirin] 325 mg Tablet 325 mg PO Q4H PRN (Reason: Pain (Scale Score 1-3)) RF: 0 Diet/Activity/Treatments Diet: Diet as Tolerated and Regular Activity: Activity as tolerated Visit Report/Discharge Packet Instructions: Understanding and Managing the Stress Response, Tips for Reducing Stress in Your Life, DI for Gastroesophageal Reflux Disease (GERD), Pantoprazole, Yoga May Help Reduce Anxiety and Stress Discharge Data Attending Provider: Ellen Mata VTE Deep Vein Thrombosis/Pulmonary Embolism Present on Admission: No
--- NOTE | 2020-09-19 18:50 | DI.NM.S_ITS ---
DATE OF SERVICE: 09/19/2020 PROCEDURE: Exercise perfusion study. INDICATIONS: Chest pain. RADIOPHARMACEUTICAL: 26.0 millicurie of technetium-99m Myoview IV was given at stress and 11.7 millicurie technetium-99m Myoview IV was injected at rest. CARDIAC STRESS: The patient underwent exercise perfusion study under the supervision of an attending staff. The patient walked on Abdirizak protocol for 15 minutes 44 seconds, achieved 102 percent of target heart rate, normal blood pressure response. Baseline rhythm was sinus with sinus bradycardia. During exercise, no convincing ischemic changes. No significant arrhythmias. No anginal symptoms. He achieved 14.8 METs of workload. Functional aerobic impairment -21 percent. RAW DATA: There is increased subdiaphragmatic activity. GATED STUDY: Stress LV ejection fraction 73 percent without any obvious wall motion abnormalities. Resting end-diastolic volume 155 mL. TID ratio 0.78, which is within normal limits. Lung/heart ratio 0.32, which is within normal limits. MYOCARDIAL PERFUSION: Stress supine, resting supine and stress prone images were compared to each other. The stress and resting supine images revealed a small size, mildly decreased perfusion of inferior wall and inferoapex, which got resolved during prone images, suggestive of diaphragmatic tissue attenuation artifact. No convincing ischemia infarction pattern seen. CONCLUSION: I will call this study a normal myocardial perfusion study with evidence of diaphragmatic tissue attenuation artifact ,which got resolved during prone images. Excellent exercise tolerance. Functional aerobic impairment - 21percent. Normal hemodynamic response. Left ventricular function preserved. No significant arrhythmia seen. Overall this is a low-risk exercise perfusion study. [facility] - August[facility]/casey doc#: [id number]/job#: [id number] dd: 09/19/2020 16:58:00 dt: 09/19/2020 18:40:00 DICTATING MD/COPIES TO: Black Tam MD COPIES MNE: HERB;
== END 2020-09-19 17:48 | disposition home or self-care (01) ==
LOC: ED 09-19 03:12 → AC 09-19 03:14
PROVIDERS: Admitting Provider Nurse Practitioner Family; Emergency Provider Emergency Medicine; Referring Provider Emergency Medicine; Visit Provider Nurse Practitioner Family
DX: R07.89 Other chest pain (principal); R42 Dizziness and giddiness; F41.9 Anxiety disorder, unspecified; F12.90 Cannabis use, unspecified, uncomplicated; Z86.19 Personal history of other infectious and parasitic diseases; Z11.59 Encounter for screening for other viral diseases
CPT/HCPCS: 36415; 71045; 71275; 78452; 80053; 80061; 82550; 82553; 83036; 83690; 83735; 83880; 84145; 84443; 84484; 85025; 85379; 85610; 87635; 93005; 93010; 93017; 93306; 96360; 96361; 96372; 99284; G0378; A9502; J1650; Q9967